=== PATIENT | male | born 1975 | race Caucasian/White ===

== ENCOUNTER → 2016-06-27 | Outpatient (CLI) | payer OTHER ==
[~2016-06-27] MED LIST: LIDOCAINE 2% MDV 20 ML VIAL As Ordered ONE; LIDOCAINE W/EPINEPHRINE 1% 20ML VIAL As Ordered ONE; SODIUM BICARBONATE 8.4% INJ 50MEQ 50 ML VIAL As Ordered ONE
--- NOTE | 2016-06-27 16:52 | REPKIM ---
CLINICAL HISTORY: Proteinuria and suspected nephrotic syndrome. The referring nephrology service has asked a diagnostic kidney biopsy. PROCEDURE PERFORMED: Percutaneous Biopsy Kidney INTERVENTIONALIST: Ifeoma Dumont MD CONSENT: The risks, benefits and alternatives to the procedure were explained to the patient and informed written consent was obtained from the patient. MEDICATIONS: Local Lidocaine EBL: 20 mL COMPLICATIONS: None immediate PROCEDURE/FINDINGS: The patient was placed in the prone position on the CT table. Time out procedure was performed. The left flank was prepped and draped in the usual sterile fashion. Using CT guidance, a 17-gauge introducer needle was advanced to the targeted mid to lower pole of the left kidney, after infiltration of the skin and deep tissues with local anesthetic. Then using coaxial technique, five core specimens obtained using an 18-gauge biopsy device. The core specimens sent to pathology. The introducer needle was then removed after additional local lidocaine with epi at the biopsy sites and along its tract. Immediate post biopsy CT showed very small hemorrhage at the biopsy sites. Direct manual pressure was applied over the skin entrance site. A sterile dressing was applied. This procedure was performed using CT. The patient tolerated the procedure well and transferred to the recovery room in stable condition. Dr. Dumont was present. IMPRESSION: Successful core biopsy of the left kidney as described above. Plan: Close observation in the recovery room with follow up non-contrast CT abdomen study in 3-4 hours. cc: Monica Dick MD [facility]
--- NOTE | 2016-06-27 22:01 | REP ---
Clinical: Nephrotic syndrome status post renal biopsy. Findings: Lung bases demonstrate moderate to large left pleural effusion with lingular and left lower lobe infiltrates. Visualized right hemithorax appears clear and normal. The bilateral kidneys are relatively normal in appearance and without intra renal or perinephric hemorrhage, hydronephrosis, perinephric stranding or emphysematous changes. Small bowel edema cannot be excluded based on current imaging. A small amount of infrahepatic fluid is identified. Impression: [id number] left pleural effusion with left sided infiltrates. Kidneys appear relatively normal. Small amount of infrahepatic fluid likely ascites. Signed by Vitor Qureshi MD 06/27/2016 09:52 P
== END | disposition home or self-care (01) ==
LOC: M IRPRO 08:19 → EDSEX 08:19
PROVIDERS: ATTEND Internal Medicine Nephrology
DX: R80.9 Proteinuria, unspecified (principal)

== ENCOUNTER → 2016-06-30 | Outpatient (REF) | payer OTHER ==
[2016-06-30 14:59] LABS: PERCENT SATURATION 49.6 % (19.7-37.4)
== END ==
LOC: M LAB REF 13:08
PROVIDERS: ATTEND Internal Medicine Nephrology
DX: D50.9 Iron deficiency anemia, unspecified (principal)

== ENCOUNTER → 2016-07-28 | Outpatient (REF) | payer OTHER ==
[~2016-07-28] MED LIST changes: +ASPI325T PO; +CRES5TAB PO; +ENOX40IN3 SC; +FOLI1TAB2 PO; +FURO40TA2 PO; -LIDOCAINE 2% MDV 20 ML VIAL As Ordered ONE; -LIDOCAINE W/EPINEPHRINE 1% 20ML VIAL As Ordered ONE; +LOSA100T36 PO; +PARO40TA PO; +PRED20TA PO; -SODIUM BICARBONATE 8.4% INJ 50MEQ 50 ML VIAL As Ordered ONE; +SPIR25TA2 PO; +VITMTA PO; +[UNRECOGNIZED DRUG - CODE] PO
== END ==
LOC: M LAB REF 13:28
PROVIDERS: ATTEND Internal Medicine Nephrology
DX: N04.2 Nephrotic syndrome with diffuse membranous glomerulonephritis (principal)

== ENCOUNTER 2016-07-29 13:18 | Inpatient (IN) | payer OTHER ==
[~2016-07-29] VITALS: Ht 190.5 cm; Wt 116.2 kg
[2016-07-29] MEDS ORDERED: ACETAMINOPHEN TAB 650MG DOSE (2X325MG) PO PRN (15:15)
[2016-07-29 17:15] VITALS: BP 169/96
--- NOTE | 2016-07-29 18:19 | REP ---
Clinical: Nephrotic syndrome. Comparison: None. Technique: PA and lateral. Findings: The mediastinum and cardiac silhouette are normal. The lung thornton are clear and without acute consolidation or pneumothorax. A small residual left pleural effusion cannot be excluded. The skeletal structures are intact and normal. Impression: 1. Small residual left pleural effusion cannot be excluded. 2. No consolidation. Signed by Vitor Qureshi MD 07/29/2016 06:11 P
[2016-07-29] MEDS ORDERED: LOSA100T36 PO (18:36)
[2016-07-29] MEDS ORDERED: PRED20TA PO (18:36)
[2016-07-29] MEDS ORDERED: CRES5TAB PO (18:36)
[2016-07-29] MEDS ORDERED: ENOX40IN3 SC (18:36)
[2016-07-29] MEDS ORDERED: PARO40TA PO (18:36)
[2016-07-29] MEDS ORDERED: VITMTA PO (18:36)
[2016-07-29] MEDS ORDERED: FURO40TA2 PO (18:36)
[2016-07-29] MEDS ORDERED: [UNRECOGNIZED DRUG - CODE] PO (18:36)
[2016-07-29] MEDS ORDERED: SPIR25TA2 PO (18:36)
[2016-07-29] MEDS ORDERED: ASPI325T PO (18:36)
[2016-07-29] MEDS ORDERED: FOLI1TAB2 PO (18:36)
[2016-07-29 18:38] LABS: BASO % 0.1 % (0.0-1.0); EOS # 0.1 K/mm3 (0.0-0.50); EOS % 0.9 % (0.0-3.0); LARGE UNSTAINED CELL % 0.4 % (0.0-4.0); LYMPH # 1.1 K/mm3 (1.5-4.5); LYMPH % 12.1 % (24.0-44.0); MEAN CORPUSCULAR HEMOGLOBIN 31.1 pg (27.0-33.0); MEAN CORPUSCULAR HGB CONC 33.1 g/dl (32.0-36.5); MEAN CORPUSCULAR VOLUME 94.1 fl (80.0-96.0); MONO # 0.2 K/mm3 (0.0-0.8); NEUTROPHILS # 7.7 K/mm3 (1.8-7.7); NEUTROPHILS % 84.5 % (36.0-66.0); PLATELET COUNT, AUTOMATED 701 k/mm3 (150-450); RED CELL DISTRIBUTION WIDTH 13.7 % (11.5-14.5); WHITE BLOOD COUNT 9.1 K/mm3 (4.0-10.0)
[2016-07-29 19:00] LABS: ALBUMIN 1.1 GM/DL (3.2-5.2); ALBUMIN/GLOBULIN RATIO 0.41 (1.00-1.93); ALKALINE PHOSPHATASE 55 U/L (45-117); ALT/SGPT 19 U/L (12-78); ANION GAP 9 MEQ/L (8-16); AST/SGOT 16 U/L (15-37); BILIRUBIN,TOTAL 0.2 MG/DL (0.2-1.0); BLOOD UREA NITROGEN 33 MG/DL (7-18); CALCIUM LEVEL 7.3 MG/DL (8.5-10.1); CARBON DIOXIDE LEVEL 21 MEQ/L (21-32); CHLORIDE LEVEL 115 MEQ/L (98-107); CREATININE FOR GFR 1.18 MG/DL (0.70-1.30); GLOMERULAR FILTRATION RATE > 60.0 (>60); GLUCOSE, FASTING 111 MG/DL (70-105); POTASSIUM SERUM 4.5 MEQ/L (3.5-5.1); SODIUM LEVEL 145 MEQ/L (136-145); T UPTAKE 39 % (33-40); THYROXINE (T4) 3.9 UG/DL (4.5-12.0); TOTAL PROTEIN 3.8 GM/DL (6.4-8.2)
[2016-07-29 19:43] VITALS: BP 141/80
[2016-07-29] MEDS: NEORAL 100 MG CAP (J7502)(C9438) PO SCH (20:36)
[2016-07-29] MEDS: methylPREDNISolone 1,000 MG, VIAL MATE ADAPTER 1 EACH in D5W 250 ML IV SCH (20:36)
[2016-07-29 23:59] VITALS: BP 144/72
[2016-07-30 05:41] VITALS: BP 159/95
[2016-07-30 07:29] LABS: MEAN CORPUSCULAR HGB CONC 32.9 g/dl (32.0-36.5); MEAN CORPUSCULAR VOLUME 94.2 fl (80.0-96.0); RED CELL DISTRIBUTION WIDTH 13.8 % (11.5-14.5); WHITE BLOOD COUNT 8.8 K/mm3 (4.0-10.0)
[2016-07-30 07:52] LABS: ALBUMIN 1.1 GM/DL (3.2-5.2); ANION GAP 10 MEQ/L (8-16); BLOOD UREA NITROGEN 39 MG/DL (7-18); CALCIUM LEVEL 7.4 MG/DL (8.5-10.1); CARBON DIOXIDE LEVEL 24 MEQ/L (21-32); CHLORIDE LEVEL 110 MEQ/L (98-107); CREATININE FOR GFR 1.22 MG/DL (0.70-1.30); GLOMERULAR FILTRATION RATE > 60.0 (>60); GLUCOSE, FASTING 127 MG/DL (70-105); PHOSPHORUS LEVEL 4.6 MG/DL (2.5-4.9); POTASSIUM SERUM 4.1 MEQ/L (3.5-5.1); SODIUM LEVEL 144 MEQ/L (136-145)
[2016-07-30 08:00] VITALS: BP 156/86
[2016-07-30] MEDS: LOSARTAN 50 MG TAB PO SCH (08:32)
[2016-07-30] MEDS: SPIRONOLACTONE 25 MG TAB PO SCH (08:32)
[2016-07-30] MEDS: ASPIRIN 325 MG TAB PO SCH (08:32)
[2016-07-30] MEDS: PARoxetine 20 MG TAB PO SCH (08:32)
[2016-07-30] MEDS: NEORAL 100 MG CAP (J7502)(C9438) PO SCH ×2 (08:32→21:11)
[2016-07-30] MEDS: PANTOPRAZOLE 40MG TAB (PROTONIX) PO SCH (08:32)
[2016-07-30] MEDS: FOLIC ACID 1 MG TAB PO SCH (08:33)
[2016-07-30] MEDS: ENOXAPARIN 40 MG/0.4 ML SYRINGE (J1650) SC SCH (08:33)
[2016-07-30] MEDS ORDERED: POTASSIUM CHLORIDE 10 MEQ SR TABLET PO SCH (09:00)
[2016-07-30] MEDS ORDERED: FUROSEMIDE 100 MG/10 ML VIAL (J1940) IV SCH (09:00)
[2016-07-30] MEDS ORDERED: FUROSEMIDE 40 MG TAB PO SCH (09:00)
[2016-07-30 12:00] VITALS: BP 141/92
--- NOTE | 2016-07-30 12:05 | HPE ---
DATE OF ADMISSION: 07/29/2016 REASON FOR ADMISSION: Generalized anasarca with severe nephrotic syndrome and acute kidney injury. HISTORY OF PRESENT ILLNESS: Mr. Riley is a 41-year-old gentleman who did not have any significant medical problems previously other than anxiety. He was noticed to have sudden onset of generalized edema back in April and was seen in my office on 05/25/2016. Further workup included a 24-hour urine which showed total protein of about 23 grams. 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 The patient has developed generalized edema and anasarca. On 06/30/2016, he weighed 208 pounds and yesterday he weighed 245 pounds. He has difficulty ambulating due to massive edema of lower extremities. The patient was already started on oral steroids and cyclosporin as outpatient last week, however has not responded so far. He is being admitted for intravenous steroid therapy and close monitoring of his kidney function and volume status. On 07/19/2016, his creatinine was up to 1.45 while his baseline creatinine is about 1.0. It is important to note that his serum albumin is less than 1.0. PAST MEDICAL AND SURGICAL HISTORY: Significant for: 1. Chickenpox in childhood. 2. Anxiety. 3. 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 4. Hypercholesterolemia. 5. Anemia of chronic kidney disease. 6. Acute kidney injury superimposed on chronic kidney disease. MEDICATIONS: His home medications include: - Lasix 40 mg daily - spironolactone 25 mg daily - prednisone 80 mg daily - cyclosporin 100 mg twice a day - aspirin 325 mg daily - losartan 100 mg daily - Paxil 40 mg daily - Crestor 10 mg daily - folic acid 0.5 mg daily ALLERGIES: The patient has no known drug allergies. FAMILY HISTORY: Father and mother are in good health. One brother is also in good health. There is no family history for kidney disease or nephrotic syndrome. PERSONAL AND SOCIAL HISTORY: The patient is and lives with his and children. He smokes about less than half a pack of cigarettes daily and denies any alcohol or recreational drug use. REVIEW OF SYSTEMS: Constitutional: The patient denies any fever or chills. He has generalized weakness and weight gain of about 35-40 pounds over the last 6 weeks. Denies any eyes, ears, nose or throat problems. Cardiovascular system is significant for generalized edema. He denies any chest pain or palpitations. Respiratory system is negative for cough or hemoptysis. Gastrointestinal (GI) system is negative for nausea, vomiting, diarrhea or abdominal pain. Genitourinary () system is negative for dysuria or gross hematuria. There is no history of kidney stones. Musculoskeletal system is significant for generalized edema with difficulty ambulating. Neurological system is negative for seizures or stroke. Psychosocial system is significant for anxiety and depression. Endocrine system is negative for diabetes or thyroid problems. Hematological system is significant for anemia and thrombocytosis. He has been started on Lovenox 40 mg daily as an outpatient. PHYSICAL EXAMINATION: The patient is awake and alert and without any acute distress at the time of my visit this evening. He weighed 112.5 kg. Temperature is 97.5 degrees Fahrenheit, heart rate 84 per minute and respiratory rate 18 per minute. Blood pressure 169/96 mmHg and oxygen saturation 98% on room air. Head is atraumatic. Pupils equal and reactive to light and sclerae is anicteric. Ears, nose and throat are unremarkable. There is no oral thrush or ulcers. Neck is supple and without jugular venous distention (JVD), thyroid enlargement or palpable cervical lymph nodes. Heart sounds are regular and lungs with slightly diminished breath sounds at left base. There is no wheezing or rales. Abdomen is soft, nontender and without palpable organomegaly. Bowel sounds are normal. There is edema of abdominal wall up to umbilicus level. Extremities have no cyanosis or clubbing. Generalized edema is present on all four limbs, much worse on the lower extremities than the upper extremities. Skin has no rash or ulcers. Neurologically he is awake, alert and oriented times three. There is no focal neurological deficit. LABORATORY DATA: His most recent labs done as an outpatient included urine protein electrophoresis which did not show any Bence-Rolon proteins. His ANCA was negative as was the double stranded anti-DNA. Complements were within normal range. Hepatitis serology was negative for B and C. Urine protein was 2246 mg/dL and a 24-hour urine protein was almost 23 grams. Today's labs show sodium level 145, potassium 4.5. BUN is 33 and creatinine 1.18. Calcium level 7.3, iron level 59, saturation 49.6. Total protein is 3.8 and albumin 1.1. Yesterday his albumin was only less than 1.0. TSH level is 2.74, T4 is 3.9 and T3 uptake is 39. WBC count 9.1, hemoglobin 12.3 and hematocrit 37.2. Platelets are 701. Chest x-ray done today did not show any acute infiltrate and a small left pleural effusion could not be ruled out. PROBLEMS: 1. Severe nephrotic syndrome with generalized anasarca. The patient has not responded to diuretics and angiotensin receptor yessenia. He has been recently started on high-dose prednisone and cyclosporin without any effect. He is being admitted for intravenous pulse dose steroids. We started with methylprednisolone 1000 mg daily for 3 days. He will continue with cyclosporin 100 mg twice a day while prednisone is being held. We will continue with angiotensin receptor yessenia. Deep venous thrombosis (DVT) prophylaxis is being addressed with Lovenox 40 mg subcutaneous daily. The patient was also continue with aspirin 325 mg daily in view of his thrombocytosis and risk of thromboembolic complications. 2. Acute kidney injury. The patient did have worsening kidney function possibly related to over diuresis and nephrotic syndrome. He probably has intravascular volume depletion due to diuretic use while he has severe nephrosis and massive third-spacing of fluid. At this point we will not diurese too aggressively and continue with immunosuppressive therapy hoping that his nephrotic syndrome will respond quickly. 3. Anemia and thrombocytosis. This is related to nephrotic syndrome and kidney disease. The patient has no active bleeding. We will monitor closely and continue with antiplatelet therapy with full aspirin and deep venous thrombosis (DVT) prophylaxis with Lovenox 40 mg daily. The patient will not be on bedrest and he will be encouraged to ambulate. He will be placed on 2 grams sodium diet and moderate fluid restriction. 4. Hypertension. At present we will continue with losartan 100 mg daily and adjust his antihypertensive medications as needed depending upon his response. We can probably consider adding a low-dose beta yessenia. I have discussed the plan of care with Mr. Riley and have answered all his questions.
[2016-07-30 16:00] VITALS: BP 138/76
[2016-07-30 20:13] VITALS: BP 148/90
[2016-07-30] MEDS: methylPREDNISolone 1,000 MG, VIAL MATE ADAPTER 1 EACH in D5W 250 ML IV SCH (21:11)
[2016-07-30 23:59] VITALS: BP 154/98
[2016-07-31 05:54] LABS: ALBUMIN 1.1 GM/DL (3.2-5.2); ALBUMIN/GLOBULIN RATIO 0.41 (1.00-1.93); ALKALINE PHOSPHATASE 56 U/L (45-117); ALT/SGPT 15 U/L (12-78); ANION GAP 8 MEQ/L (8-16); AST/SGOT 9 U/L (15-37); BILIRUBIN,TOTAL 0.2 MG/DL (0.2-1.0); BLOOD UREA NITROGEN 41 MG/DL (7-18); CALCIUM LEVEL 7.7 MG/DL (8.5-10.1); CARBON DIOXIDE LEVEL 23 MEQ/L (21-32); CHLORIDE LEVEL 112 MEQ/L (98-107); CREATININE FOR GFR 1.18 MG/DL (0.70-1.30); GLOMERULAR FILTRATION RATE > 60.0 (>60); GLUCOSE, FASTING 145 MG/DL (70-105); MAGNESIUM LEVEL 2.2 MG/DL (1.8-2.4); POTASSIUM SERUM 4.5 MEQ/L (3.5-5.1); SODIUM LEVEL 143 MEQ/L (136-145); TOTAL PROTEIN 3.8 GM/DL (6.4-8.2)
[2016-07-31 06:25] VITALS: BP 142/82
[2016-07-31 08:00] VITALS: BP 155/85
[2016-07-31] MEDS: SPIRONOLACTONE 25 MG TAB PO SCH (08:15)
[2016-07-31] MEDS: PARoxetine 20 MG TAB PO SCH (08:15)
[2016-07-31] MEDS: PANTOPRAZOLE 40MG TAB (PROTONIX) PO SCH (08:15)
[2016-07-31] MEDS: FOLIC ACID 1 MG TAB PO SCH (08:15)
[2016-07-31] MEDS: LOSARTAN 50 MG TAB PO SCH (08:16)
[2016-07-31] MEDS: ASPIRIN 325 MG TAB PO SCH (08:16)
[2016-07-31] MEDS: NEORAL 100 MG CAP (J7502)(C9438) PO SCH ×2 (08:16→22:06)
[2016-07-31] MEDS: ENOXAPARIN 40 MG/0.4 ML SYRINGE (J1650) SC SCH (08:17)
[2016-07-31] MEDS ORDERED: hydroCHLOROthiazide 25 MG TAB PO SCH (09:00)
[2016-07-31] MEDS ORDERED: FUROSEMIDE 40 MG TAB PO SCH (09:00)
--- NOTE | 2016-07-31 09:33 | IPN ---
DATE: 07/30/2016 SUBJECTIVE: Patient was seen and examined at the bedside today in the morning. He was feeling fine. He is status post one gram IV Solu-Medrol last night. Patient was eating his breakfast. He continues to have low urine output. Renal function is stable at this time. REVIEW OF SYSTEMS: Patient denies any fever, chills, rigors, headache, nausea, vomiting, chest pain, shortness of breath, pain in the abdomen, constipation, or diarrhea. He continues to complain of anasarca. The rest of the review of systems is negative. OBJECTIVE: VITAL SIGNS: Temperature is 96.5 degrees Fahrenheit, blood pressure is 156/86, pulse is 65, respiratory rate 18, saturating 98% on room air. Intake and output: Urine output recorded as 225 mL yesterday, 250 mL so far today since overnight. Weight on the bed scale was 111.3 kg yesterday; it is 112.6 kg today. GENERAL: Patient is awake, alert, and oriented times three, sitting in the bed eating his breakfast in no apparent distress. HEAD AND NECK EXAM: Extraocular muscles are intact. Pupils equally round and reactive to light. Mucous membranes are moist. Neck is supple. There is no jugular venous distention (JVD). CARDIOVASCULAR: S1, S2 regular rate. No murmur, rub, or gallop; however, the patient has anasarca, about 3+ pitting edema of the bilateral lower extremities, and 1+ pitting edema of the bilateral upper extremities. RESPIRATORY: Chest is clear to auscultation bilaterally. Bilaterally equal air entry. No rales or rhonchi. ABDOMEN: Soft. Positive bowel sounds. Nontender. He has positive abdominal wall edema, which is pitting. There is no organomegaly. EXTREMITIES: No clubbing or cyanosis. Pitting edema of the bilateral lower extremities as mentioned above. CENTRAL NERVOUS SYSTEM: No focal neurological deficit. Power is 5/5 in all extremities. SKIN: No rashes or ulcers. PSYCH: Normal mood and affect. No agitation. No signs of psychosis. LAB REVIEW: CBC showed a WBC of 8.8, hemoglobin is 12, platelets are 650. Urinalysis showed protein was 3+, glucose was 1+, blood was 1+. BMP showed sodium 144, potassium 4.1, chloride 110, bicarbonate 24, BUN is 39, creatinine is 1.2, it was 1.18 yesterday. Fasting glucose is 127, calcium is 7.4, albumin is 1.1, phosphorus is 4.6. CURRENT MEDICATIONS: Patient's medications were all reviewed by me. He has been started on aspirin 325 mg by mouth daily, Lovenox 40 mg subcutaneous daily, folic acid 1 mg by mouth daily. He was given an additional dose of Lasix 60 mg IV, but because of severe nephrotic syndrome and risk of hypocoagulability, Lasix has been switched back to 40 mg by mouth daily. He was also started on losartan 100 mg by mouth daily and potassium chloride 40 mEq by mouth daily as well. There are no other changes in the medications as compared with yesterday. ASSESSMENT: 41-year-old male admitted at this time because of nephrotic syndrome and generalized anasarca secondary to membranous nephropathy. He was admitted yesterday and started on pulse dose steroids. Yesterday, was the first dose of Solu-Medrol one gram IV. PLAN: 1. Severe nephrotic syndrome with anasarca. Patient was started on pulse steroids, Solu-Medrol one gram IV yesterday and will get the second dose tonight and third dose will be given tomorrow. Continue to monitor the glucose. Monitor for steroid-induced psychosis. Continue the cyclosporine 100 mg by mouth twice a day. Continue losartan 100 mg by mouth daily. 2. Risk of thromboembolic complications secondary to nephrotic syndrome. Patient has been started on aspirin 325 mg by mouth daily and Lovenox 40 mg subcutaneous daily. 3. Acute kidney injury secondary to nephrotic syndrome and intravascular volume depletion. Patient was given one dose of IV Lasix; however, because of the severe low albumin, I have switched him back to Lasix 40 mg by mouth daily only. 4. Anemia and thrombocytosis secondary to nephrotic syndrome. Because of the thrombocytosis, he has been started on aspirin 325 mg by mouth daily. Hemoglobin is 12 at this time. No need of erythropoietin stimulating agent at this time. 5. Hypertension. Part of the hypertension is secondary to pulse dose steroids. Continue current dose of losartan 100 mg by mouth daily. Blood pressure is acceptable at this time. 6. Gastrointestinal (GI) prophylaxis. Patient is on high-dose steroids. He has been started on Protonix 40 mg by mouth. 7. Anasarca. Patient is on Lasix 40 mg by mouth daily, spironolactone 25 mg by mouth daily. I would avoid excessive diuresis in this patient with very low albumin secondary to nephrotic syndrome and he is intravascularly depleted. I will wait for his kidney function and albumin level to improve before restarting to diuresis this patient aggressively. Plan of care was discussed with Mr. Riley at the bedside today in the morning.
[2016-07-31 12:00] VITALS: BP 155/87
[2016-07-31] MEDS: FUROSEMIDE 40 MG/4 ML VIAL (J1940) IV SCH (14:01)
[2016-07-31] MEDS: hydroCHLOROthiazide 25 MG TAB PO SCH (14:01)
[2016-07-31 16:00] VITALS: BP 160/85
[2016-07-31 17:31] VITALS: BP 143/76
[2016-07-31 19:46] VITALS: BP 145/62
[2016-07-31] MEDS: methylPREDNISolone 1,000 MG, VIAL MATE ADAPTER 1 EACH in D5W 250 ML IV SCH (20:39)
[2016-08-01] MEDS: hydroCHLOROthiazide 25 MG TAB PO SCH ×3 (01:07→23:42)
[2016-08-01] MEDS: FUROSEMIDE 40 MG/4 ML VIAL (J1940) IV SCH ×3 (01:07→23:42)
[2016-08-01 05:00] VITALS: BP 142/80
[2016-08-01 05:33] LABS: MEAN CORPUSCULAR HEMOGLOBIN 31.8 pg (27.0-33.0); MEAN CORPUSCULAR HGB CONC 33.6 g/dl (32.0-36.5); MEAN CORPUSCULAR VOLUME 94.6 fl (80.0-96.0); WHITE BLOOD COUNT 13.3 K/mm3 (4.0-10.0)
[2016-08-01 06:00] LABS: ALBUMIN 1.3 GM/DL (3.2-5.2); ALBUMIN/GLOBULIN RATIO 0.59 (1.00-1.93); ALKALINE PHOSPHATASE 46 U/L (45-117); ALT/SGPT 14 U/L (12-78); ANION GAP 10 MEQ/L (8-16); AST/SGOT 8 U/L (15-37); BILIRUBIN,TOTAL 0.2 MG/DL (0.2-1.0); BLOOD UREA NITROGEN 42 MG/DL (7-18); CALCIUM LEVEL 7.5 MG/DL (8.5-10.1); CARBON DIOXIDE LEVEL 22 MEQ/L (21-32); CHLORIDE LEVEL 112 MEQ/L (98-107); CREATININE FOR GFR 1.15 MG/DL (0.70-1.30); GLOMERULAR FILTRATION RATE > 60.0 (>60); GLUCOSE, FASTING 135 MG/DL (70-105); POTASSIUM SERUM 4.2 MEQ/L (3.5-5.1); SODIUM LEVEL 144 MEQ/L (136-145); TOTAL PROTEIN 3.5 GM/DL (6.4-8.2)
[2016-08-01 08:00] VITALS: BP 140/70
[2016-08-01] MEDS: PARoxetine 20 MG TAB PO SCH (09:20)
[2016-08-01] MEDS: SPIRONOLACTONE 25 MG TAB PO SCH (09:20)
[2016-08-01] MEDS: NEORAL 100 MG CAP (J7502)(C9438) PO SCH ×2 (09:20→20:23)
[2016-08-01] MEDS: ASPIRIN 325 MG TAB PO SCH (09:20)
[2016-08-01] MEDS: FOLIC ACID 1 MG TAB PO SCH (09:20)
[2016-08-01] MEDS: PANTOPRAZOLE 40MG TAB (PROTONIX) PO SCH (09:20)
[2016-08-01] MEDS: LOSARTAN 50 MG TAB PO SCH (09:21)
[2016-08-01] MEDS: ENOXAPARIN 40 MG/0.4 ML SYRINGE (J1650) SC SCH (09:21)
[2016-08-01 12:00] VITALS: BP 146/86
[2016-08-01 16:00] VITALS: BP 140/75
[2016-08-01 19:40] VITALS: BP 153/76
[2016-08-02] VITALS: BP 163/91
--- NOTE | 2016-08-02 03:55 | IPN ---
DATE OF SERVICE: 07/31/2016 SUBJECTIVE: Patient was seen and examined at the bedside today morning. He got the second dose of pulse steroids last night. He is feeling okay. He still continues to gain weight. He is in a positive fluid balance. His kidney function is otherwise stable. He continues to have low albumin. REVIEW OF SYSTEMS: Patient denies any fever, chills, rigors, headache, nausea, vomiting, chest pain, shortness of breath, pain abdomen, constipation, or diarrhea. He continues to complain of generalized edema. Rest of review of systems is negative. OBJECTIVE: VITAL SIGNS: Temperature is 96.7 degrees Fahrenheit, blood pressure is 145/62, pulse is 82, respiratory rate 18, saturating 96% on room air. Intake and output: Urine output is not recorded well yesterday. Urine output recorded so far today since overnight is 900 mL. Weight on the bed scale is 115.4 kg. It was 112.6 kg yesterday. PHYSICAL EXAMINATION: GENERAL: Patient is awake, alert, oriented times three, lying in the bed not in distress. HEAD AND NECK EXAMINATION: Extraocular muscles intact. Pupils equally round and reactive to light. Mucous membranes are moist. Neck is supple. There is no jugular venous distention (JVD). CARDIOVASCULAR: S1, S2, regular rate. No murmur, rub, or gallop. The patient has generalized anasarca, 3+ edema of the bilateral lower extremities, 1+ edema of the bilateral upper extremities and positive edema of the abdominal wall as well. RESPIRATORY: Chest is clear to auscultation bilaterally. Bilateral equal air entry. No rales or rhonchi. ABDOMEN: Soft. Positive bowel sounds. Nontender. No organomegaly. He has positive abdominal wall edema. EXTREMITIES: No clubbing or cyanosis. Pulses are 2+. Edema of the extremities as mentioned above. CENTRAL NERVOUS SYSTEM: No focal neurological deficit. Power is 5/5 in all extremities. SKIN: No rashes or ulcers. PSYCHIATRIC: Normal mood and affect. No agitation. LABORATORY REVIEW: CBC showed a WBC of 8.8, hemoglobin of 12 and that was done yesterday. BMP done today showed sodium 143, potassium 4.5, chloride 112, bicarbonate 23, BUN is 41, creatinine is 1.18, glucose was 145, calcium was 7.7, magnesium 2.2, albumin was 1.1. CURRENT MEDICATIONS: Patient's medications were all reviewed by me. - He continues to be on IV Solu-Medrol 1 gram every 24 hours, and tonight would be the third dose. - He continues to be on cyclosporin 100 mg by mouth twice a day. - I have increased his diuretics to Lasix 40 mg IV every 12 hours. - I have added the hydrochlorothiazide 25 mg every 12 hours. ASSESSMENT: 41-year-old male admitted this time because of nephrotic syndrome, generalized anasarca secondary to membranous nephropathy. He is currently getting pulse steroids. He has received two doses of intravenous (IV) Solu-Medrol so far. PLAN: 1. Severe nephrotic syndrome with anasarca. Today the patient will get the third dose of IV Solu-Medrol, continue cyclosporin 100 mg by mouth twice a day. 2. Hypertension. Continue current dose of losartan 100 mg by mouth daily. Blood pressure is acceptable at this time. 3. Anasarca. I have started the patient on albumin 12.5 grams IV every 12 hours along with Lasix 40 mg IV every 12 hours and also added a small dose of thiazide diuretic hydrochlorothiazide 25 mg by mouth twice a day to augment the diuretic action of Lasix. 4. Thrombocytosis and hypercoagulability secondary to nephrotic syndrome. Patient continues to be on aspirin 325 mg by mouth daily and Lovenox 40 mg subcutaneously daily. 5. Gastrointestinal (GI) prophylaxis. Patient is on high-dose steroids. He is currently on Protonix. 6. Disposition. I would wait for patient's response to the third dose of steroids before switching him to oral steroids and he would also need diuresis because patient continues to gain weight at this time despite oral diuretics. I anticipate patient will need to stay in the hospital a few more days.
[2016-08-02 04:00] VITALS: BP 145/92
[2016-08-02 05:25] LABS: MEAN CORPUSCULAR HEMOGLOBIN 31.3 pg (27.0-33.0); MEAN CORPUSCULAR HGB CONC 33.1 g/dl (32.0-36.5); MEAN CORPUSCULAR VOLUME 94.6 fl (80.0-96.0); RED CELL DISTRIBUTION WIDTH 13.8 % (11.5-14.5)
[2016-08-02 05:51] LABS: ALBUMIN 1.4 GM/DL (3.2-5.2); ALBUMIN/GLOBULIN RATIO 0.74 (1.00-1.93); ALKALINE PHOSPHATASE 44 U/L (45-117); ALT/SGPT 20 U/L (12-78); ANION GAP 9 MEQ/L (8-16); AST/SGOT 11 U/L (15-37); BILIRUBIN,TOTAL 0.2 MG/DL (0.2-1.0); BLOOD UREA NITROGEN 42 MG/DL (7-18); CALCIUM LEVEL 7.3 MG/DL (8.5-10.1); CARBON DIOXIDE LEVEL 24 MEQ/L (21-32); CHLORIDE LEVEL 112 MEQ/L (98-107); CREATININE FOR GFR 1.11 MG/DL (0.70-1.30); GLOMERULAR FILTRATION RATE > 60.0 (>60); GLUCOSE, FASTING 88 MG/DL (70-105); MAGNESIUM LEVEL 1.9 MG/DL (1.8-2.4); POTASSIUM SERUM 3.9 MEQ/L (3.5-5.1); SODIUM LEVEL 145 MEQ/L (136-145); TOTAL PROTEIN 3.3 GM/DL (6.4-8.2)
[2016-08-02 08:00] VITALS: BP 152/87
[2016-08-02] MEDS: LOSARTAN 50 MG TAB PO SCH (09:37)
[2016-08-02] MEDS: PARoxetine 20 MG TAB PO SCH (09:37)
[2016-08-02] MEDS: NEORAL 100 MG CAP (J7502)(C9438) PO SCH ×2 (09:38→20:25)
[2016-08-02] MEDS: FOLIC ACID 1 MG TAB PO SCH (09:38)
[2016-08-02] MEDS: ASPIRIN 325 MG TAB PO SCH (09:38)
[2016-08-02] MEDS: predniSONE 20 MG TAB PO SCH (09:38)
[2016-08-02] MEDS: PANTOPRAZOLE 40MG TAB (PROTONIX) PO SCH (09:38)
[2016-08-02] MEDS: SPIRONOLACTONE 25 MG TAB PO SCH (09:38)
[2016-08-02] MEDS: ENOXAPARIN 40 MG/0.4 ML SYRINGE (J1650) SC SCH (09:39)
[2016-08-02] MEDS: FUROSEMIDE 40 MG TAB PO SCH ×2 (11:02→16:16)
[2016-08-02] MEDS: hydroCHLOROthiazide 25 MG TAB PO SCH (11:02)
--- NOTE | 2016-08-02 11:16 | IPN ---
DATE OF SERVICE: 08/01/2016 SUBJECTIVE: Patient was seen and examined at the bedside today in the morning. He does not have any active complaint. He responded well to the diuretic regimen including loop diuretics, albumin and thiazide duretics. He got his third dose of pulse steroid 1 gram intravenous (IV) yesterday. He continues to have significant proteinuria and albuminuria and anasarca. REVIEW OF SYSTEMS: Patient denies any fever, chills, rigors, headache, nausea, vomiting, chest pain, shortness of breath, pain abdomen, constipation, or diarrhea. He continues to complain of generalized anasarca. OBJECTIVE: VITAL SIGNS: Temperature is 96.7 degrees Fahrenheit, blood pressure is 140/70, pulse is 83, respiratory rate 18, saturating 98% on room air. Intake and output: Urine output recorded yesterday is 1850 mL. Urine output recorded so far today since overnight is 600 mL. Weight on the bed scale is 116 kg. PHYSICAL EXAMINATION: GENERAL: Patient is awake, alert, oriented times three, sitting in the bed, no apparent distress. HEAD AND NECK EXAMINATION: Extraocular muscles intact. Pupils equally round and reactive to light. Neck is supple. There is no jugular venous distention (JVD). CARDIOVASCULAR: S1, S2, regular rate. No murmur, rub, or gallop. The patient has generalized anasarca, 3+ pitting edema of the bilateral lower extremities up to thighs, 1+ pitting edema of the bilateral upper extremities. RESPIRATORY: Chest is clear to auscultation bilaterally. Bilateral equal air entry. No rales or rhonchi. ABDOMEN: Soft. Positive bowel sounds. Nontender. Positive abdominal wall edema. No organomegaly. EXTREMITIES: No clubbing or cyanosis. Pulses are 2+. Pitting edema of all four extremities as mentioned above. CENTRAL NERVOUS SYSTEM: No focal neurological deficit. Power is 5/5 in all extremities. SKIN: No rashes or ulcers. PSYCHIATRIC: Normal mood and affect. LABORATORY REVIEW: CBC showed a WBC of 13.3, hemoglobin 10.8, platelets of 565. Urine random creatinine was 130. Urine random protein was 2062. It roughly is equivalent to 15.5 grams of proteinuria. CURRENT MEDICATIONS: Patient's medications were all reviewed by me. Patient got a third dose of IV Solu-Medrol 1 gram yesterday. He continues to be on cyclosporin 100 mg by mouth twice a day. ASSESSMENT: 41-year-old male admitted because of nephrotic syndrome, generalized anasarca secondary to membranous nephropathy, status post three doses of intravenous (IV) pulse steroids. PLAN: 1. Severe nephrotic syndrome with anasarca. The patient got three doses of pulse steroids. He will be started on prednisone 80 mg by mouth daily starting from tomorrow. Continue current dose of cyclosporin 100 mg by mouth twice a day. He continues to have more than 15 grams of proteinuria on spot urine protein creatinine ratio. 2. Prevention of thromboembolic complication secondary to nephrotic syndrome. Continue current dose of aspirin 325 mg by mouth daily and Lovenox 40 mg subcutaneously daily. 3. Hypertension. Continue current dose of losartan 100 mg by mouth daily. Blood pressure is acceptable at this time. 4. Anasarca. The patient is currently getting Lasix 40 mg IV twice a day, hydrochlorothiazide 25 mg by mouth twice a day, spironolactone 25 mg by mouth daily and IV albumin 12.5 grams twice a day to enhance the diuretic effect. I would avoid aggressive diuresis in this patient because of hypoalbuminemia and risk of thrombosis. 5. Gastrointestinal (GI) prophylaxis. Continue current dose of Protonix 40 mg by mouth daily. 6. Anemia and thrombocytosis. Patient's hemoglobin is acceptable at 10.8 at this time. Continue to monitor for now. 7. Leukocytosis. Is most likely secondary to high-dose steroids. Continue to monitor CBC at this point. No evidence of infection.
[2016-08-02 12:00] VITALS: BP 154/94
[2016-08-02 16:00] VITALS: BP 142/88
[2016-08-02 20:00] VITALS: BP 153/86
[2016-08-03] VITALS: BP 151/72
[2016-08-03] MEDS: hydroCHLOROthiazide 25 MG TAB PO SCH (00:06)
[2016-08-03 04:00] VITALS: BP 148/78
[2016-08-03 06:13] LABS: ALBUMIN/GLOBULIN RATIO 0.48 (1.00-1.93); ALKALINE PHOSPHATASE 49 U/L (45-117); ALT/SGPT 17 U/L (12-78); ANION GAP 6 MEQ/L (8-16); AST/SGOT 8 U/L (15-37); BILIRUBIN,TOTAL 0.2 MG/DL (0.2-1.0); BLOOD UREA NITROGEN 39 MG/DL (7-18); CALCIUM LEVEL 7.1 MG/DL (8.5-10.1); CARBON DIOXIDE LEVEL 26 MEQ/L (21-32); CHLORIDE LEVEL 112 MEQ/L (98-107); CREATININE FOR GFR 0.93 MG/DL (0.70-1.30); GLOMERULAR FILTRATION RATE > 60.0 (>60); GLUCOSE, FASTING 95 MG/DL (70-105); POTASSIUM SERUM 3.6 MEQ/L (3.5-5.1); SODIUM LEVEL 144 MEQ/L (136-145); TOTAL PROTEIN 3.4 GM/DL (6.4-8.2)
[2016-08-03 06:25] LABS: ALBUMIN 1.1 GM/DL (3.2-5.2)
[2016-08-03 08:00] VITALS: BP 158/88
[2016-08-03] MEDS: ASPIRIN 325 MG TAB PO SCH (08:23)
[2016-08-03] MEDS: NEORAL 100 MG CAP (J7502)(C9438) PO SCH (08:23)
[2016-08-03] MEDS: PANTOPRAZOLE 40MG TAB (PROTONIX) PO SCH (08:23)
[2016-08-03] MEDS: predniSONE 20 MG TAB PO SCH (08:23)
[2016-08-03 08:24] VITALS: BP 148/78
[2016-08-03] MEDS: FOLIC ACID 1 MG TAB PO SCH (08:24)
[2016-08-03] MEDS: SPIRONOLACTONE 25 MG TAB PO SCH (08:24)
[2016-08-03] MEDS: LOSARTAN 50 MG TAB PO SCH (08:24)
[2016-08-03] MEDS: PARoxetine 20 MG TAB PO SCH (08:24)
[2016-08-03] MEDS: ENOXAPARIN 40 MG/0.4 ML SYRINGE (J1650) SC SCH (08:25)
[2016-08-03] MEDS: FUROSEMIDE 40 MG TAB PO SCH (08:25)
[2016-08-03] MEDS ORDERED: PANT40TA2 PO (10:28)
[2016-08-03] MEDS ORDERED: FURO40TA2 PO (10:28)
[2016-08-03] MEDS ORDERED: HYDR25TAB PO (10:28)
--- NOTE | 2016-08-03 14:10 | IPN ---
DATE: 08/02/2016 SUBJECTIVE: Patient was seen and examined at the bedside today in the morning. The patient has been started on oral prednisone 80 mg by mouth daily. He is status post pulse IV steroids for three days. He continues to have significant proteinuria; however, his urine output improved and his weight is stable at 116 kg for the last 2 days and his renal function is also stable at his baseline. REVIEW OF SYSTEMS: Patient denies any fever, chills, rigors, headache, nausea, vomiting, chest pain, shortness of breath, pain abdomen, constipation, or diarrhea. He still reports generalized anasarca, which has not improved yet. OBJECTIVE: VITAL SIGNS: Temperature is 96.5 degrees Fahrenheit, blood pressure is 153/86, pulse is 82, respiratory rate of 18, saturating 97% on room air. Intake and output: Urine output recorded was 2100 mL yesterday and 1300 mL so far today since overnight. Weight on the bed scale is 116 kg, which is the same as yesterday. PHYSICAL EXAMINATION: GENERAL: Patient is awake, alert, oriented times three, sitting in the bed, no apparent distress. HEAD AND NECK EXAMINATION: Extraocular muscles intact. Pupils equally round and reactive to light. Neck is supple. There is no jugular venous distention (JVD). CARDIOVASCULAR: S1, S2, regular rate. No murmur, rub, or gallop. The patient has generalized anasarca RESPIRATORY: Chest is clear to auscultation bilaterally. Bilateral equal air entry. No rales or rhonchi. ABDOMEN: Soft. Positive bowel sounds. Nontender. No organomegaly, but the patient does have pitting abdominal wall edema. EXTREMITIES: No clubbing or cyanosis. Pulses are 2+. Pitting edema of all four extremities, which is 1+ in the upper extremities and about 3+ in the bilateral lower extremities up to the abdomen. CENTRAL NERVOUS SYSTEM: No focal neurological deficit. Power is 5/5 in all extremities. SKIN: No rashes or ulcers. PSYCHIATRIC: Normal mood and affect. LABORATORY REVIEW: CBC showed a WBC of 12, hemoglobin 10.5, platelets of 534. BMP showed sodium 145, potassium 3.9, chloride 112, bicarbonate is 24, BUN is 42, creatinine is 1.1, calcium is 7.3, albumin is 1.4. CURRENT MEDICATIONS: Patient's current medications were all reviewed by me. His diuretic dose has been changed to Lasix 40 mg by mouth twice a day. 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 He was admitted because of generalized anasarca and for intravenous (IV) pulse steroids. PLAN: 1. Severe nephrotic syndrome with anasarca. The patient is status post pulse steroids for three days. He has been started on prednisone 80 mg by mouth daily. Continue current dose of cyclosporin 100 mg by mouth twice a day. CBC is within acceptable limits. 2. Anasarca. The patient got IV albumin and IV Lasix for 2 days. He has been switched to Lasix 40 mg by mouth twice a day, along with hydrochlorothiazide 25 mg by mouth twice a day and spironolactone 25 mg by mouth daily. IV albumin has been stopped. Continue to monitor intake, output, and daily weights. 3. Hypertension. The patient's blood pressure is acceptable at this time. Continue current dose of losartan 100 mg by mouth daily and diuretics. 4. Prevention of thromboembolic complications secondary to severe nephrotic syndrome. Continue current dose of aspirin and Lovenox. 5. Anemia and thrombocytosis. Patient's hemoglobin is acceptable at this time. Continue to monitor for now. Thrombocytosis continues to slowly improve every day. Continue current dose of aspirin 325 mg by mouth daily. The plan of care was discussed with the patient and his at the bedside and with the patient's R.N. as well.
--- NOTE | 2016-08-04 22:02 | DSES ---
DATE OF ADMISSION: 07/29/2016 DATE OF DISCHARGE: 08/03/2016 ADMISSION DIAGNOSES: 1. Severe nephrotic syndrome with generalized anasarca. 2. Acute kidney injury. 3. Anemia and thrombocytosis. 4. Hypertension. DISCHARGE DIAGNOSES: 1. Nephrotic syndrome secondary to membranous nephropathy. 2. Generalized anasarca. 3. Anemia and thrombocytosis. 4. Hypertension. CONSULTATIONS: There were no consults. Patient was admitted under nephrology service. PROCEDURES: There were no surgical or interventional procedures done apart from chest x-ray done on 07/29/2016. HISTORY OF PRESENT ILLNESS: Mr. Tip Riley is a 41-year-old male with no significant past medical history. 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 Patient was started on oral steroids and cyclosporine as outpatient, but he kept on gaining weight and he had generalized anasarca, so patient was admitted for IV pulse steroids and IV diuretics. Patient was also found to have a creatinine of 1.45 on admission; his baseline creatinine is 1. He also had acute kidney injury on admission as well. HOSPITAL COURSE: Patient was admitted on 07/29/2016. He was started on IV pulse steroids one gram IV daily, which he received for three days. Later on he was switched to prednisone 80 mg by mouth daily. For generalized anasarca, he was initially given oral diuretics, which he did respond well to. He was started on IV albumin infusion along with Lasix 40 mg IV twice a day, spironolactone 25 mg by mouth daily, along with hydrochlorothiazide 25 mg by mouth twice a day. Patient started diuresing well with this regimen. Initially, his weights were going up, but then his weight stabilized at 116 kg. For the risk of thromboembolic complications secondary to nephrotic syndrome, patient was given aspirin 325 mg by mouth daily and Lovenox 40 mg subcutaneous daily. His acute kidney injury slowly improved over the course of his admission, and his creatinine on the day of discharge was 1.1. For gastrointestinal (GI) prophylaxis in the setting of high-dose steroids, he was given Protonix. His hypertension was controlled with losartan 100 mg by mouth daily, and with diuretics and losartan, his blood pressure stayed within the acceptable range. Patient also had thrombocytosis on admission, which totally kept on improving, and is platelet counts were 534, and we continued him on aspirin. Patient's anemia also stayed within the acceptable limits. His hemoglobin on discharge was 10.5. On the morning of 08/03/2016, patient was discharged home in stable condition and he will followup with nephrology as an outpatient. PHYSICAL EXAMINATION ON DAY OF DISCHARGE: VITAL SIGNS: Temperature 96.9 degrees Fahrenheit, blood pressure 158/88, pulse 86, respiratory rate of 18, saturating 97% on room air. HEAD AND NECK EXAM: Extraocular muscles are intact. Pupils equally round and reactive to light. Neck is supple. There is no jugular venous distention (JVD). CARDIOVASCULAR: S1, S2 regular rate. No murmur, rub, or gallop. RESPIRATORY: Chest is clear to auscultation bilaterally. Bilaterally equal air entry. No rales or rhonchi. ABDOMEN: Soft. Positive bowel sounds. Positive abdominal wall edema. EXTREMITIES: No clubbing or cyanosis. Positive 3+ edema of the bilateral lower extremities up to the thighs. CENTRAL NERVOUS SYSTEM: No focal neurological deficit. Power is 5/5 in all extremities. SKIN: No rashes or ulcers. LABS ON THE DAY OF DISCHARGE: His WBC was 12, hemoglobin 10.5, platelets 534. BMP showed sodium 144, potassium 3.6, chloride 112, bicarbonate 26, BUN 39, creatinine is 0.93, calcium is 7.1, albumin is 1.1. DISPOSITION: Discharged to home. DISCHARGE CONDITION: Stable with improving anasarca. DISCHARGE MEDICATIONS: - aspirin 325 mg by mouth daily - Neoral 100 mg by mouth twice a day - Lovenox 40 mg subcutaneous daily - folic acid 1 mg by mouth daily - Lasix 40 mg by mouth twice a day - hydrochlorothiazide 25 mg by mouth twice a day - losartan 100 mg by mouth daily - Protonix 40 mg by mouth daily - prednisone 80 mg by mouth daily - spironolactone 25 mg by mouth daily - Paxil 40 mg by mouth daily DISCHARGE INSTRUCTIONS: Patient was instructed to start medications as soon as he reaches home and to followup with nephrology service tomorrow morning and to continue following up with nephrology every week for any need to adjust the medications. Patient was asked to continue to follow 1500 mL fluid restriction in his diet. DIET ON DISCHARGE: 2 gram sodium diet. FOLLOWUP: Nephrology followup with Dr. Dick tomorrow morning. I spent more than 30 minutes in coordinating the discharge of the patient from the hospital. JESSE
== END 2016-08-03 12:00 | disposition home or self-care (01) | DRG 700 ==
LOC: M PCU 17:52
PROVIDERS: ADMIT Internal Medicine Nephrology; ATTEND Internal Medicine Nephrology
PROC: 30253J1 (ICD-10-PCS; principal; 2016-07-31)
DX: N04.2 Nephrotic syndrome with diffuse membranous glomerulonephritis (principal); N17.9 Acute kidney failure, unspecified; F41.9 Anxiety disorder, unspecified; R60.1 Generalized edema; F32.9 Major depressive disorder, single episode, unspecified; E88.09 Other disorders of plasma-protein metabolism, not elsewhere classified; N18.9 Chronic kidney disease, unspecified; D47.3 Essential (hemorrhagic) thrombocythemia; E78.00 Pure hypercholesterolemia, unspecified; F17.210 Nicotine dependence, cigarettes, uncomplicated; D63.1 Anemia in chronic kidney disease; Z79.52 Long term (current) use of systemic steroids; Z79.82 Long term (current) use of aspirin; Z79.899 Other long term (current) drug therapy

== ENCOUNTER → 2016-08-04 | Outpatient (REF) | payer OTHER ==
[~2016-08-04] MED LIST changes: +HYDR25TAB PO; +PANT40TA2 PO
== END ==
LOC: M LAB REF 13:13
PROVIDERS: ATTEND Internal Medicine Nephrology
DX: N04.2 Nephrotic syndrome with diffuse membranous glomerulonephritis (principal)

== ENCOUNTER → 2016-08-11 | Outpatient (REF) | payer OTHER | LOC: M LAB REF 16:50 | PROVIDERS: ATTEND Internal Medicine Nephrology | DX: N04.2 Nephrotic syndrome with diffuse membranous glomerulonephritis (principal) ==

== ENCOUNTER → 2016-08-18 | Outpatient (REF) | payer OTHER | LOC: M LAB REF 12:46 | PROVIDERS: ATTEND Internal Medicine Nephrology | DX: N04.2 Nephrotic syndrome with diffuse membranous glomerulonephritis (principal); R80.1 Persistent proteinuria, unspecified ==

== ENCOUNTER → 2016-08-26 | Outpatient (REF) | payer OTHER | LOC: M LAB REF 13:09 | PROVIDERS: ATTEND Internal Medicine Nephrology | DX: N04.2 Nephrotic syndrome with diffuse membranous glomerulonephritis (principal); R80.1 Persistent proteinuria, unspecified ==

== ENCOUNTER → 2016-09-05 | Outpatient (REF) | payer OTHER | LOC: M LAB REF 13:02 | PROVIDERS: ATTEND Internal Medicine Nephrology | DX: N04.2 Nephrotic syndrome with diffuse membranous glomerulonephritis (principal); R80.1 Persistent proteinuria, unspecified ==

== ENCOUNTER → 2016-09-20 | Outpatient (REF) | payer OTHER ==
[~2016-09-20] MED LIST changes: -PARO40TA PO; +PARO40TA2 PO
== END ==
LOC: M LAB REF 13:26
PROVIDERS: ATTEND Internal Medicine Nephrology
DX: N04.2 Nephrotic syndrome with diffuse membranous glomerulonephritis (principal); R80.1 Persistent proteinuria, unspecified; E78.00 Pure hypercholesterolemia, unspecified

== ENCOUNTER → 2016-10-18 | Outpatient (REF) | payer OTHER | LOC: M LAB REF 16:56 | PROVIDERS: ATTEND Internal Medicine Nephrology | DX: N04.2 Nephrotic syndrome with diffuse membranous glomerulonephritis (principal); R80.1 Persistent proteinuria, unspecified ==

== ENCOUNTER → 2016-11-21 | Outpatient (REF) | payer OTHER | LOC: M LAB REF 13:15 | PROVIDERS: ATTEND Internal Medicine Nephrology | DX: N04.2 Nephrotic syndrome with diffuse membranous glomerulonephritis (principal); R80.1 Persistent proteinuria, unspecified ==

== ENCOUNTER → 2016-12-20 | Outpatient (REF) | payer OTHER ==
[~2016-12-20] MED LIST changes: -FOLI1TAB2 PO; +FOLI1TAB4 PO
== END ==
LOC: M LAB REF 13:21
PROVIDERS: ATTEND Internal Medicine Nephrology
DX: N04.2 Nephrotic syndrome with diffuse membranous glomerulonephritis (principal); R31.9 Hematuria, unspecified; R80.1 Persistent proteinuria, unspecified; E78.00 Pure hypercholesterolemia, unspecified

== ENCOUNTER → 2017-01-20 | Outpatient (REF) | payer OTHER | LOC: M LAB REF 12:58 | PROVIDERS: ATTEND Internal Medicine Nephrology | DX: N04.2 Nephrotic syndrome with diffuse membranous glomerulonephritis (principal); R80.1 Persistent proteinuria, unspecified ==

== ENCOUNTER → 2017-03-23 | Outpatient (REF) | payer OTHER | LOC: M LAB REF 13:03 | PROVIDERS: ATTEND Internal Medicine Nephrology | DX: N04.2 Nephrotic syndrome with diffuse membranous glomerulonephritis (principal); E78.00 Pure hypercholesterolemia, unspecified; R80.1 Persistent proteinuria, unspecified ==

== ENCOUNTER → 2017-05-24 | Outpatient (REF) | payer OTHER | LOC: M LAB REF 17:01 | PROVIDERS: ATTEND Internal Medicine Nephrology | DX: N04.2 Nephrotic syndrome with diffuse membranous glomerulonephritis (principal); R80.1 Persistent proteinuria, unspecified ==

== ENCOUNTER → 2017-07-25 | Outpatient (REF) | payer OTHER ==
[2017-07-25 14:09] LABS: TOTAL PROTEIN,RANDOM URINE 84.7 MG/DL (0.0-12.0)
[2017-07-27 10:13] LABS: CYCLOSPORINE LABCORP None Detected ng/mL (100-400)
== END ==
LOC: M LAB REF 13:35
DX: N04.2 Nephrotic syndrome with diffuse membranous glomerulonephritis (principal); R80.1 Persistent proteinuria, unspecified
CPT/HCPCS: 80158

== ENCOUNTER → 2017-11-07 | Outpatient (REF) | payer OTHER ==
[2017-11-07 13:37] LABS: TOTAL PROTEIN,RANDOM URINE 41.5 MG/DL (0.0-12.0)
[2017-11-09 08:06] LABS: CYCLOSPORINE LABCORP 87 ng/mL (100-400)
== END ==
LOC: M LAB REF 13:04
DX: N04.2 Nephrotic syndrome with diffuse membranous glomerulonephritis (principal); R80.1 Persistent proteinuria, unspecified

== ENCOUNTER → 2017-11-07 | Outpatient (REF) | payer OTHER ==
[2017-11-07 19:33] LABS: FOLATE > 24.0 NG/ML (>5.4)
== END ==
LOC: M LAB REF 17:25
DX: D53.1 Other megaloblastic anemias, not elsewhere classified (principal)
CPT/HCPCS: 82746

== ENCOUNTER → 2018-06-08 | Outpatient (REF) | payer OTHER ==
[~2018-06-08] MED LIST changes: +FOLI1TAB11 PO; -FOLI1TAB4 PO; -LOSA100T36 PO; +LOSA100T50 PO; -PANT40TA2 PO; +PANT40TA3 PO; +SPIR-10 PO; -SPIR25TA2 PO
== END ==
LOC: M LAB REF 12:43
PROVIDERS: ATTEND Internal Medicine Nephrology
DX: N04.2 Nephrotic syndrome with diffuse membranous glomerulonephritis (principal); R80.1 Persistent proteinuria, unspecified

== ENCOUNTER → 2018-12-07 | Outpatient (REF) | payer OTHER ==
[~2018-12-07] MED LIST changes: +ASPI-1 PO; -ASPI325T PO
== END ==
LOC: M LAB REF 12:37
PROVIDERS: ATTEND Internal Medicine Nephrology
DX: N04.2 Nephrotic syndrome with diffuse membranous glomerulonephritis (principal); R80.1 Persistent proteinuria, unspecified

== ENCOUNTER → 2019-04-15 | Outpatient (REF) | payer OTHER | LOC: M LAB REF 13:22 | PROVIDERS: ATTEND Internal Medicine Nephrology | DX: N04.2 Nephrotic syndrome with diffuse membranous glomerulonephritis (principal); R80.1 Persistent proteinuria, unspecified ==

== ENCOUNTER → 2019-10-15 | Outpatient (REF) | payer OTHER | LOC: M LAB REF 16:28 | PROVIDERS: ATTEND Internal Medicine Nephrology | DX: N04.2 Nephrotic syndrome with diffuse membranous glomerulonephritis (principal); R80.1 Persistent proteinuria, unspecified ==

== ENCOUNTER → 2019-11-28 | Outpatient (REF) | payer OTHER ==
[2019-11-28 20:52] LABS: TOTAL PROTEIN 24 HOUR URINE 3797.5 MG/24HR (50-150); TOTAL VOLUME, URINE 1750 ML
== END ==
LOC: M LAB REF 16:51
PROVIDERS: ATTEND Internal Medicine Nephrology
DX: R31.9 Hematuria, unspecified (principal); N04.2 Nephrotic syndrome with diffuse membranous glomerulonephritis

== ENCOUNTER → 2024-08-30 | Outpatient (REF) | payer OTHER ==
[~2024-08-30] MED LIST changes: +HYDR-3490 PO; -HYDR25TAB PO; +LOSA100T46 PO; -LOSA100T50 PO; +PANT40TA29 PO; -PANT40TA3 PO
[2024-08-30 17:38] LABS: BASO # 0.1 10^3/uL (0.0-0.2); BASO % 0.9 % (0.0-1.0); EOS # 0.2 10^3/uL (0.0-0.5); EOS % 2.9 % (0.0-3.0); HEMATOCRIT 45.9 % (42.0-52.0); HEMOGLOBIN 15.3 g/dl (13.5-17.5); LYMPH # 2.1 10^3/uL (1.5-5.0); LYMPH % 31.4 % (24.0-44.0); MEAN CORPUSCULAR HEMOGLOBIN 31.7 pg (27.0-33.0); MEAN CORPUSCULAR HGB CONC 33.3 g/dl (32.0-36.5); MEAN CORPUSCULAR VOLUME 95.2 fl (80.0-96.0); MONO # 0.5 10^3/uL (0.0-0.8); MONO % 7.7 % (2.0-8.0); NEUTROPHILS # 3.7 10^3/uL (1.5-8.5); NEUTROPHILS % 56.8 % (36.0-66.0); PLATELET COUNT, AUTOMATED 328 10^3/uL (150-450); RED BLOOD COUNT 4.82 10^6/uL (4.30-6.10); WHITE BLOOD COUNT 6.5 10^3/uL (4.0-10.0)
[2024-08-30 17:41] LABS: ALBUMIN 3.9 G/DL (3.2-5.2); ALKALINE PHOSPHATASE 69 U/L (40-129); ALT/SGPT 22 U/L (7.0-40); AST/SGOT 13 U/L (<34); BILIRUBIN,TOTAL 0.4 MG/DL (0.3-1.2); BLOOD UREA NITROGEN 13 MG/DL (9-23); CALCIUM LEVEL 9.1 MG/DL (8.5-10.1); CARBON DIOXIDE LEVEL 27 MMOL/L (20-31); CHLORIDE LEVEL 103 MMOL/L (98-107); CHOLESTEROL LEVEL 204 MG/DL (<200); CHOLESTEROL RISK RATIO 3.87 (<5); CPK CREATINE PHOSPHOKINASE 107 U/L (46-171); CREATININE FOR GFR 0.77 MG/DL (0.70-1.30); GLOMERULAR FILTRATION RATE > 60.0 (>56); GLUCOSE, FASTING 94 MG/DL (60-100); HDL CHOLESTEROL 52.7 MG/DL (>40); LDL CHOLESTEROL 127.1 MG/DL (<100); NON-HDL-C 151.3 MG/DL; POTASSIUM SERUM 4.7 MMOL/L (3.5-5.1); SODIUM LEVEL 141 MMOL/L (136-145); TOTAL PROTEIN 7.2 G/DL (5.7-8.2); TRIGLYCERIDES LEVEL 121 MG/DL (<150)
== END ==
LOC: M LAB REF 16:57
PROVIDERS: ATTEND Nurse Practitioner Family
DX: E78.5 Hyperlipidemia, unspecified (principal)